=== PATIENT | male | born 1990 | race African-American/Black ===

== ENCOUNTER 2018-02-12 18:21 | Emergency (ER) | payer OTHER ==
[~2018-02-12] VITALS: Ht 190.5 cm; Wt 90.7 kg
[~2018-02-12 18:21] MED LIST: NORCO 5-325 TA1 EACH PO; PHENERGAN 25 MG25 M1 PO; ZOFRAN ODT4 MG PO
[2018-02-12 19:14] LABS: URINE BILIRUBIN NEGATIVE (Negative); URINE BLOOD TRACE (Negative); URINE CLARITY CLEAR; URINE COLOR YELLOW; URINE GLUCOSE-RANDOM NEGATIVE (Negative); URINE KETONES TRACE (Negative); URINE LEUKOCYTES-REFLEX 1+ (Negative); URINE NITRITE-REFLEX NEGATIVE (Negative); URINE PROTEIN TRACE (Negative); URINE SPECIFIC GRAVITY >= 1.030 (1.005-1.030); URINE UROBILINOGEN 0.2 E.U./dl (0.2-1.0)
[2018-02-12 19:21] LABS: URINE WBC-REFLEX >25 Many /HPF (0-5)
[2018-02-12 19:22] LABS: CASTS None Seen /LPF (None Seen); SQUAMOUS 0-3 Few /LPF (0-3)
[2018-02-12 19:23] LABS: CRYSTALS None Seen /LPF (None Seen); MUCUS 4-6 Moderate strn/LPF (None Seen); URINE RBC 0-2 Rare /HPF (0-2)
[2018-02-12] MEDS ORDERED: CIPRO250 M2 PO (19:46)
[2018-02-12 19:53] VITALS: BP 113/76
[2018-02-12 21:16] LABS: AMP/METHAMP POSITIVE (Negative); BARBITURATES Negative (Negative); BENZODIAZEPINES Negative (Negative); COCAINE Negative (Negative); METHADONE Negative (Negative); OPIATES Negative (Negative); PCP Negative (Negative); THC POSITIVE (Negative)
== END 2018-02-12 19:52 | disposition home or self-care (01) ==
LOC: M.ERS 18:21
PROVIDERS: Nurse Practitioner
DX: A64 Unspecified sexually transmitted disease (principal); F32.9 Major depressive disorder, single episode, unspecified; F90.9 Attention-deficit hyperactivity disorder, unspecified type; F17.210 Nicotine dependence, cigarettes, uncomplicated; Z88.0 Allergy status to penicillin; Z88.1 Allergy status to other antibiotic agents; Z88.8 Allergy status to other drugs, medicaments and biological substances

== ENCOUNTER 2020-01-05 00:15 | Emergency (ER) | payer BC ==
[~2020-01-05] VITALS: Ht 188 cm; Wt 113.0 kg
[~2020-01-05 00:15] MED LIST changes: +CIPRO250 M2 PO
[2020-01-05 01:01] LABS: POTASSIUM 4.6 mmol/L (3.5-5.1)
[2020-01-05 01:02] LABS: CREATININE 1.2 mg/dL (0.6-1.3)
[2020-01-05 01:04] LABS: ABSOLUTE BASOPHILS 0.1 thou/uL (0.0-0.2); ABSOLUTE EOSINOPHILS 0.3 thou/uL (0.0-0.7); ABSOLUTE LYMPHOCYTES 3.8 thou/uL (0.8-5.3); ABSOLUTE MONOCYTES 0.6 thou/uL (0.0-1.2); ABSOLUTE NEUTROPHILS 4.6 thou/uL (1.6-8.1); BASOPHILS 0.6 %; EOSINOPHILS 2.7 %; HEMATOCRIT 38.7 % (42.0-52.0); HEMOGLOBIN 13.8 gm/dL (14.0-18.0); MCH 31.7 pg (26.0-34.0); MCHC 35.5 g/dL (28.0-37.0); MCV 89.1 fL (80.0-100.0); MONOCYTES 6.3 %; NUCLEATED RBCS 0 /100WBC; PLATELET COUNT* 210 thou/uL (150-400); POLYS 49.4 %; RBC 4.34 mil/uL (4.50-6.00); RDW-CV 13.5 % (10.5-14.5); WBC 9.4 thou/uL (4.0-11.0)
[2020-01-05 01:07] LABS: URINE BILIRUBIN NEGATIVE (Negative); URINE BLOOD NEGATIVE (Negative); URINE CLARITY CLEAR; URINE COLOR STRAW; URINE GLUCOSE-RANDOM 3+ (Negative); URINE KETONES NEGATIVE (Negative); URINE LEUKOCYTES-REFLEX NEGATIVE (Negative); URINE NITRITE-REFLEX NEGATIVE (Negative); URINE PROTEIN NEGATIVE (Negative); URINE SPECIFIC GRAVITY 1.015 (1.005-1.030); URINE UROBILINOGEN 0.2 E.U./dl (0.2-1.0)
[2020-01-05 01:29] LABS: TOTAL BILIRUBIN 0.4 mg/dL (<0.1-1.0)
[2020-01-05 01:30] LABS: ALBUMIN 3.8 g/dL (3.4-5.0); CALCIUM 8.2 mg/dL (8.5-10.1); TOTAL PROTEIN 7.2 g/dL (6.4-8.2)
[2020-01-05] MEDS ORDERED: GLUCOPHAGE500 MG PO (02:38)
[2020-01-05 02:53] VITALS: BP 151/97
--- NOTE | 2020-01-05 13:27 | EKG ---
[place] [address] ELECTROCARDIOGRAM REPORT Name: MARTINPARKER Cantu Room: [facility]#: [id number] Admission: 01/05/20 Attend Phys: Discharge: 01/05/20 Date of : 89 Date of Service: 01/05/20 0048 Report #: [id number] THIS REPORT FOR: //name// [facility] ED Test Date: 2020-01-05 Test Time: 00:48:10 Pat Name: PARKER SALAZAR Department: Room: Gender: Project Specialist: : 1990 Requested By: Leila Garcia Order Number: [id number] MD: Ankit Fox Measurements Intervals [place] Rate: 85 P: 33 ND: 147 QRS: 38 QRSD: 94 T: 35 QT: 363 QTc: 432 Interpretive Statements Sinus rhythm Borderline ST elevation, anterior leads No previous ECG available for comparison Electronically Signed On 01-05-2020 13:26:58 CDT by Ankit Fox [email or web address] <ELECTRONICALLY SIGNED> By: Aknit Fox MD, [facility] 01/05/20 1326 0048 0048 Ankit Fox MD, [facility] /EPI
[2020-01-06 02:06] LABS: GLYCOHEMOGLOBIN (HGB A1C) 10.8 % (4.8-5.6)
== END 2020-01-05 02:54 | disposition home or self-care (01) ==
LOC: M.ERS 00:15
PROVIDERS: Emergency Medicine
DX: R73.9 Hyperglycemia, unspecified (principal); Z88.0 Allergy status to penicillin; Z88.1 Allergy status to other antibiotic agents; Z88.6 Allergy status to analgesic agent

== ENCOUNTER 2020-09-11 23:02 | Emergency (ER) | payer BC ==
[~2020-09-11] VITALS: Ht 188 cm; Wt 97.5 kg
[~2020-09-11 23:02] MED LIST changes: +GLUCOPHAGE500 MG PO
[2020-09-11] MEDS ORDERED: ADDERALL 10 MG10 MG PO (23:12)
[2020-09-11] MEDS ORDERED: XANAX1 MG PO (23:13)
[2020-09-12 01:14] LABS: ABSOLUTE EOSINOPHILS 0.1 thou/uL (0.0-0.7); ABSOLUTE LYMPHOCYTES 0.7 thou/uL (0.8-5.3); ABSOLUTE MONOCYTES 0.6 thou/uL (0.0-1.2); ABSOLUTE NEUTROPHILS 8.2 thou/uL (1.6-8.1); BASOPHILS 0.1 %; EOSINOPHILS 0.8 %; HEMATOCRIT 46.2 % (42.0-52.0); HEMOGLOBIN 15.2 gm/dL (14.0-18.0); LYMPHOCYTES 7.3 %; MCH 28.9 pg (26.0-34.0); MCV 87.6 fL (80.0-100.0); MONOCYTES 6.3 %; MPV 6.7 fl. (7.2-11.1); NUCLEATED RBCS 0 /100WBC; PLATELET COUNT* 338 thou/uL (150-400); POLYS 85.5 %; RBC 5.27 mil/uL (4.50-6.00); RDW-CV 14.3 % (10.5-14.5); WBC 9.5 thou/uL (4.0-11.0)
[2020-09-12 01:22] LABS: CREATININE 1.3 mg/dL (0.6-1.3); POTASSIUM 4.3 mmol/L (3.5-5.1)
[2020-09-12 01:26] LABS: ALBUMIN 4.7 g/dL (3.4-5.0); TOTAL BILIRUBIN 0.5 mg/dL (<0.1-1.0); TOTAL PROTEIN 8.7 g/dL (6.4-8.2)
[2020-09-12 02:04] LABS: URINE BILIRUBIN NEGATIVE (Negative); URINE BLOOD TRACE (Negative); URINE CLARITY CLEAR; URINE COLOR YELLOW; URINE GLUCOSE-RANDOM NEGATIVE (Negative); URINE KETONES 2+ (Negative); URINE LEUKOCYTES-REFLEX NEGATIVE (Negative); URINE NITRITE-REFLEX NEGATIVE (Negative); URINE PROTEIN NEGATIVE (Negative); URINE SPECIFIC GRAVITY >= 1.030 (1.005-1.030); URINE UROBILINOGEN 0.2 E.U./dl (0.2-1.0)
[2020-09-12] MEDS ORDERED: ZOFRAN ODT4 MG PO (02:24)
[2020-09-12] MEDS ORDERED: DICYCLOMINE HCL20 MG PO (02:24)
[2020-09-12] MEDS ORDERED: FLAGYL500 M1 PO (02:25)
[2020-09-12 02:50] VITALS: BP 119/61
== END 2020-09-12 02:51 | disposition home or self-care (01) ==
LOC: M.ERS 23:02
PROVIDERS: Personal Emergency Response Attendant
DX: K52.9 Noninfective gastroenteritis and colitis, unspecified (principal); E11.9 Type 2 diabetes mellitus without complications; Z88.1 Allergy status to other antibiotic agents; Z88.0 Allergy status to penicillin; Z88.6 Allergy status to analgesic agent